=== PATIENT | male | born 1965 | race Caucasian/White ===

== ENCOUNTER 2024-08-13 18:21 | Emergency (ER) | payer BC, SELFPAY ==
[2024-08-13 18:23] VITALS: BP 166/100
[2024-08-13 18:49] LABS: Hematocrit 44.2 % (39.0-52.0); Hemoglobin 15.5 g/dL (13.0-18.0); Mean Corp Hgb Conc. 35.1 g/dL (33.0-37.0); Mean Corpuscular Hgb 31.3 pg (27.0-31.0); Mean Corpuscular Volume 89.3 fL (80.0-94.0); Platelet Count 223 10^3/uL (130-400); Red Blood Cell Count 4.95 10^6/uL (4.70-6.10); Red Cell Dist. Width 13.2 % (11.5-14.5); White Blood Cell Count 12.3 10^3/uL (4.8-10.8)
[2024-08-13 18:54] LABS: ALT (SGPT) 22 U/L (0-50); AST (SGOT) 23 U/L (17-59); Alkaline Phosphatase 66 U/L (38-126); Blood Urea Nitrogen 24 mg/dl (9-20); Calcium 9.6 mg/dl (8.4-10.2); Carbon Dioxide 29 mmol/L (22-30); Chloride 98 mmol/L (98-107); Glucose 94 mg/dl (70-99); Potassium 4.4 mmol/L (3.5-5.1); Sodium 133 mmol/L (135-145); Total Bilirubin 1.3 mg/dl (0.2-1.3); Total Protein 7.1 g/dl (6.3-8.2)
[2024-08-13 19:03] LABS: eGFR 37.74
[2024-08-13 19:11] LABS: Troponin I < 0.012 ng/ml
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
[2024-08-13 19:18] LABS: % Basophils 0.4 % (0-2); % Eosinophils 1.1 % (0-6); % Immature Granulocytes 0.4 % (0-0.5); % Lymphocytes 69.6 % (20.5-51.1); % Monocytes 3.7 % (1.7-9.3); % Neutrophils 24.8 % (42.2-75.2); Absolute Basophils 0.1 10^3/uL (0-0.2); Absolute Eosinophils 0.1 10^3/uL (0-0.7); Absolute Immature Granulocytes 0.1 10^3/uL (0-0.05); Absolute Lymphocytes 8.5 10^3/uL (1.2-3.4); Absolute Monocytes 0.5 10^3/uL (0.1-0.6); Nucleated Red Blood Cells % 0 % (-)
== END 2024-08-13 20:22 | disposition home or self-care (01) ==
LOC: EMR 18:21
PROVIDERS: Student in an Organized Health Care Education/Training Program; EMERGENCY PHYSICIAN Emergency Medicine
DX: S20.212A Contusion of left front wall of thorax, initial encounter (principal); S80.11XA Contusion of right lower leg, initial encounter; V28.01XA Electric (assisted) bicycle driver injured in noncollision transport accident in nontraffic accident, initial encounter; R79.89 Other specified abnormal findings of blood chemistry
CPT/HCPCS: 99285; 70450; 71046; 80053; 84484; 85025; 93005

== ENCOUNTER 2025-06-02 14:35 | Emergency (ER) | payer BC, SELFPAY ==
[2025-06-02 14:46] VITALS: BP 148/90
[2025-06-02 15:11] LABS: Hematocrit 45.7 % (39.0-52.0); Hemoglobin 15.6 g/dL (13.0-18.0); Mean Corp Hgb Conc. 34.1 g/dL (33.0-37.0); Mean Corpuscular Volume 89.8 fL (80.0-94.0); Platelet Count 223 10^3/uL (130-400); Red Cell Dist. Width 13.2 % (11.5-14.5)
[2025-06-02 15:20] LABS: ALT (SGPT) 23 U/L (0-50); AST (SGOT) 22 U/L (17-59); Albumin 4.3 g/dl (3.5-5.0); Alkaline Phosphatase 61 U/L (38-126); Blood Urea Nitrogen 17 mg/dl (9-20); Calcium 9.7 mg/dl (8.4-10.2); Carbon Dioxide 29 mmol/L (22-30); Chloride 103 mmol/L (98-107); Glucose 94 mg/dl (70-99); Potassium 4.9 mmol/L (3.5-5.1); Sodium 136 mmol/L (135-145); Total Protein 6.9 g/dl (6.3-8.2); eGFR 57.54
[2025-06-02 16:00] LABS: Nucleated Red Blood Cells % 0.7 % (-)
[2025-06-02 17:27] VITALS: BP 125/87
--- NOTE | 2025-06-02 17:28 | ED.GENMED ---
History of Present Illness
General
Chief Complaint: Skin Problem
Source: patient
Exam Limitations: none
Time Seen by Provider: 06/02/25 16:54
History of Present Illness
History of Present Illness:
60-year-old male primarily concerned of a swelling in his right axilla. He said itchiness to both axilla since starting an antibiotic. Also lethargy although this been going on for years. Some night sweats. No weight change. No chest pain or
shortness of breath no other complaints.
Past History
Past History
ED Past Medical History: Hypothyroidism and Other (Prostatic hypertrophy)
ED Past Surgical History: Orthopedic and Other
Review of Systems
Review of Systems
All Other Systems: Not applicable
Constitutional: Denies fever
Respiratory: Reports no symptoms
Cardiac: Reports no symptoms
Phy Exam
Physical Exam
Physical Exam:
GENERAL: Alert and oriented in no apparent distress
EYE: Orbits normal.
NECK: Supple, no significant adenopathy.
ENT: Pharynx without erythema
CARDIAC: Regular rate and rhythm without any obvious murmurs.
LUNGS: Clear breath sounds,normal
ABDOMEN: Soft, without focal tenderness or distention
NEUROLOGICAL: Alert and oriented , grossly non-focal
SKIN: Warm and dry, area of erythema to both axillas with a raised border consistent with a likely fungal infection. Small less than 1 cm lymph node to the right axilla. Nontender.
MUSCULOSKELETAL: No edema,no deformity.Good color
PSYCH: Normal and appropriate interaction.
Course
Orders/Labs/Results
Orders:
Orders
06/02/25 14:57
Complete Blood Count/With Diff Urgent
Comprehensive Metabolic Panel Urgent
Lyme Progressive Urgent
Comment: ADD ON
TSH Reflex To Free T4 Urgent
Comment: ADD ON
06/02/25 16:16
Carbidopa/Levodopa [Sinemet 25-100] 1 tablet TUBE NOW STA
Propafenone HCl [Rythmol] 150 mg TUBE NOW STA
06/02/25 17:04
CXR2 [CR Chest - 2 Views ] Urgent
Comment:
Reason For Exam: evaluate for adenoipathy/night sweats
06/02/25 17:06
Add On- LAB Urgent
Tests Added?: tsh reflex t4
06/02/25 18:09
Add On- LAB Urgent
Tests Added?: lyme progressive
Abnormal Lab Results
06/02/25
14:57
WBC 11.9 H 10^3/uL
(4.8-10.8)
Abs Immat Gran (auto) 0.1 H 10^3/uL
(0-0.05)
Absolute Lymphs (auto) 8.3 H 10^3/uL
(1.2-3.4)
Immature Gran % 0.7 H %
(0-0.5)
Neutrophils % 23.9 L %
(42.2-75.2)
Lymphocytes % 69.8 H %
(20.5-51.1)
Creatinine 1.4 H mg/dL
(0.7-1.3)
06/02/25 14:57
06/02/25 14:57
Vital Signs
Initial and Last Documented VS:
Initial Vital Signs
Temp Pulse Resp BP Pulse Ox
98.4 F 75 18 148/90 96
06/02/25 14:46 06/02/25 14:46 06/02/25 14:46 06/02/25 14:46 06/02/25 14:46
Last Documented Vital Signs
Temp Pulse Resp BP Pulse Ox
98.4 F 81 17 125/87 97
06/02/25 14:46 06/02/25 17:27 06/02/25 17:27 06/02/25 17:27 06/02/25 17:30
MDM/Problems Addressed
Differential Diagnosis Includes:
Patient not acutely ill clinically. Symptom complex would be most concerning for some kind of underlying cancer. However not an acute issue. He does have what appears to be a fungal infection of both axillas. There is a small lymph node there
but actually improved. Will check his thyroid levels. Antifungal cream for the axilla. Follow-up with hematology and primary care. Persistent lymphocytosis
*Pulse Oximetry
SaO2: 97
Oxygen Mode of Delivery: Room air
Patient hypoxic: no
*Critical Care Note
Total Time (30-74mins, 75-104mins- exclusive of procedures): Not Applicable
ED Attending Note
-
Portions of this chart may have been created with voice recognition software.� Occasional wrong word or��sound alike� substitutions may have occurred due to the inherent limitations of voice recognition software.
Discharge Plan
Departure
Patient Disposition: Home (Routine Discharge)
Date of Disposition: 06/02/25
Time of Disposition: 18:31
Patient with high blood pressure during this ER visit?: Yes
Discharge Problem:
Axillary adenopathy, Axillary rash, Ongoing lymphocytosis, Night sweats/fatigue
Instructions: Fatigue (DC), Skin Rash (DC), BLOOD PRESSURE
Prescriptions:
New
clotrimazole 1 % cream
1 applic topical BID 14 Days Qty: 30 0RF
Referrals:
[facility] [[facility]] - Follow up in 2-3 days
Dacia Concepcion MD [Active, Oncology] - Next open appointment
NONE,* [Family Provider, Internal Medicine]
Activity Restrictions/Additional Instructions:
I listed both a relief manager/oncologist and the family practice residency programs numbers
Use cream as directed
Call for the Lyme titer result in 4 days
Interventions
Interventions:
*Risk Screen - Suicide Last Done: 06/02/25 14:46
*General Assessment Last Done: 06/02/25 14:46
*Neglect/Abuse Screening Last Done: 06/02/25 14:46
*ED COVID-19 Vaccine History Last Done: 06/02/25 17:27
*ED Influenza Vaccine History Last Done: 06/02/25 17:27
*Nursing Disposition Last Done: 06/02/25 18:49
ED-Skin Assessment Last Done: 06/02/25 17:27
Discharge Date and Time
Discharge Date/Time: 06/02/25 18:50
Print Language: NORWEGIAN
== END 2025-06-02 18:50 | disposition home or self-care (01) ==
LOC: EMR 14:35
PROVIDERS: Emergency Medicine; EMERGENCY PHYSICIAN Emergency Medicine
DX: R59.0 Localized enlarged lymph nodes (principal); D72.820 Lymphocytosis (symptomatic); R61 Generalized hyperhidrosis; R53.83 Other fatigue; E03.9 Hypothyroidism, unspecified; N40.0 Benign prostatic hyperplasia without lower urinary tract symptoms
CPT/HCPCS: 99284; 71046; 80053; 84443; 85025; 86618